=== PATIENT | male | born 1950 | race Caucasian/White ===

== ENCOUNTER 2017-04-28 19:53 | Emergency (ER) | payer MEDICARE, BC ==
[~2017-04-28] VITALS: Ht 182.9 cm; Wt 108.9 kg
[~2017-04-28 19:53] MED LIST: ASCO500T3 PO; ASPI-482 PO; BYSTOLIC10 MG PO; BYSTOLIC5 MG PO; CEPH-264 PO; CHLO25TA PO; CINN500C2 PO; CLOP75TA57 PO; COCO1000 PO; DILT180C67 PO; FLAX10003 PO; LISI-334 PO; LISI20TA PO; Metoprolol Tartrate PO; OLME1TAB25 PO; OMEG1CAP6 PO; POTA99TA PO; SIMV10TA PO
--- NOTE | 2017-04-28 20:25 | ED.ADGEN ---
Past Medical History Past Medical History: CAD, Hypertension, Stroke Past Surgical History: Other Additional Past Surgical Histo: cardiac stent Alcohol Use: None Drug Use: None Adult General Chief Complaint Chief Complaint: LOWER EXTREMITY SWELLING HPI HPI Patient is a 66 year old male presents with right foot injury 10 days ago. Patient had a ladder fall on his right foot ten-day goes ago resulting in deep abrasions to dorsal forefoot at that time. Patient reports persistent tenderness or pain with weightbearing for the past 10 days with erythema first noted surrounding wound 2 days goes with rapid expansion of cellulitis to mid anterior ng exam hours ago. Patient is not diabetic. He denies fever, chills, nausea vomiting and sweats. Patient has not been evaluated for his foot injury prior to ED his ED visit today. Review of Systems Review of Systems Review symptoms as per history of present illness. All other review symptoms are negative. Allergies Allergies Allergies Coded Allergies Type Severity Reaction Last Updated Verified Oafpedt-Rht-Dld Reductase Inhibitor Allergy Severe 06/11/14 Yes Physical Exam Physical Exam Constitutional: Well developed, well nourished, no acute distress, non-toxic appearance. HENT: Normocephalic, atraumatic, bilateral external ears normal, oropharynx moist, no oral exudates, nose normal. Eyes: PERRL. Cardiovascular:Heart rate regular rhythm Lungs & Thorax: Bilateral breath sounds clear to auscultation Abdomen: Bowel sounds normal, soft, no tenderness, no masses, no pulsatile masses. Skin: Cellulitis of left lower extremities. Back: No tenderness. Extremities: Right foot, 4 x 2 cm weeping abrasion on dorsal aspect of forefoot with surrounding cellulitis and soft tissue swellings spreading from wound to toes to mid anterior ng. Neurologic: Alert and oriented X 3, normal motor function, normal sensory function. Psychologic: Affect normal, judgement normal, mood normal. Current Patient Data Vital Signs Vital Signs Date Time Temp Pulse Resp B/P (MAP) Pulse Ox O2 Delivery O2 Flow Rate FiO2 04/28/17 19:55 98.0 63 20 210/100 (136) 95 Room Air 98.0 EKG EKG [] Radiology/Procedures Radiology/Procedures [Right foot X-ray:no obvious displaced fracture] Course & Med Decision Making Course & Med Decision Making Pertinent Labs and Imaging studies reviewed. (See chart for details) [Right soft tissue injury with cellulitis of foot extending to anterior ng.. Can't biotics started in the ED. Care endorsed to at 21:00] Ronaldo Disclaimer Ronaldo Disclaimer This electronic medical record was generated, in whole or in part, using a voice recognition dictation system. DANA SHEPPARD DO Apr 28, 2017 20:25
[2017-04-28 21:24] LABS: HEMATOCRIT 41.7 % (39.0-53.0); HEMOGLOBIN 13.7 g/dL (13.0-17.5); WHITE BLOOD COUNT 8.3 x10^3/uL (4.0-11.0)
[2017-04-28] MEDS ORDERED: CLINDAMYCIN 900MG PREMIX 50 ML IV ONE (21:30)
[2017-04-28 22:15] VITALS: BP 170/82
[2017-04-28 22:31] LABS: CALCIUM 8.4 mg/dL (8.5-10.1); CREATININE 0.9 mg/dL (0.7-1.3); GFR 84.7; POTASSIUM 3.9 mmol/L (3.5-5.1)
[2017-04-28] MEDS ORDERED: CLIN300C8 PO (22:32)
[2017-04-28] MEDS ORDERED: HYDR-2758 PO (22:32)
[2017-04-28] MEDS ORDERED: NAPR500T PO (22:32)
[2017-04-28 22:36] LABS: ALBUMIN 3.4 g/dL (3.4-5.0); ALBUMIN/GLOBULIN RATIO 1.3 (1.0-1.7); C-REACTIVE PROTEIN 17.3 mg/L (0-3.3); TOTAL BILIRUBIN 0.3 mg/dL (0.2-1.0)
--- NOTE | 2017-04-29 08:56 | RAD ---
Indication injury several days earlier. Pain. AP oblique and lateral views of the right foot were obtained. Degenerative cyst is noted involving the distal aspect of the proximal phalanx of the large toe. There is soft tissue swelling over the dorsum of the foot. No acute or significant bony finding is seen
== END 2017-04-28 22:47 | disposition home or self-care (01) ==
LOC: ER 19:53
DX: L03.115 Cellulitis of right lower limb (principal); I10 Essential (primary) hypertension; I25.10 Atherosclerotic heart disease of native coronary artery without angina pectoris; Z86.73 Personal history of transient ischemic attack (TIA), and cerebral infarction without residual deficits; Z95.5 Presence of coronary angioplasty implant and graft; Z88.8 Allergy status to other drugs, medicaments and biological substances
CPT/HCPCS: 36415; 73630; 80053; 85027; 86140; 87040; 96365; 99285; J3490

== ENCOUNTER → 2017-10-11 | Outpatient (CLI) | payer MEDICARE, BC | END | disposition home or self-care (01) | LOC: KCIC 14:42 | DX: M54.32 Sciatica, left side (principal); M47.896 Other spondylosis, lumbar region | CPT/HCPCS: 72110 ==